=== PATIENT | female | born 1935 | race Caucasian/White ===

== ENCOUNTER 2022-03-25 09:18 | Emergency (ER) | payer MEDICARE, OTHER ==
[~2022-03-25] VITALS: Ht 157.5 cm; Wt 72.5 kg
[2022-03-25] MEDS ORDERED: ACETAMINOPHEN 325 MG TABLET PO STA (09:25)
[2022-03-25] MEDS ORDERED: cefTRIAXone 1 GM PRE-MIX 50 ML IV STA (09:28)
[2022-03-25] MEDS ORDERED: NS IV 1000 ML 1,000 ML IV STA ×2 (09:28→10:50)
[2022-03-25 09:32] LABS: BASOPHILS # (AUTO) 0.1 10^3/uL (0.0-0.1); BASOPHILS % (AUTO) 0 % (0-10); EOSINOPHILS % (AUTO) 0 % (0-10); HEMATOCRIT 37 % (35-52); LYMPHOCYTES # (AUTO) 0.6 10^3/uL (1.0-4.0); LYMPHOCYTES % (AUTO) 3 % (12-44); MEAN CORPUSCULAR HEMOGLOBIN 29 pg (25-34); MEAN CORPUSCULAR HGB CONC 32 g/dL (32-36); MEAN CORPUSCULAR VOLUME 91 fL (80-99); MEAN PLATELET VOLUME 9.5 fL (9.0-12.2); MONOCYTES # (AUTO) 0.7 10^3/uL (0.0-1.0); MONOCYTES % (AUTO) 3 % (0-12); NEUTROPHILS # (AUTO) 20.1 10^3/uL (1.8-7.8); NEUTROPHILS % (AUTO) 93 % (42-75); PLATELET COUNT 343 10^3/uL (130-400); WHITE BLOOD COUNT 21.6 10^3/uL (4.3-11.0)
--- NOTE | 2022-03-25 09:32 | ED General ---
General Chief Complaint: Skin/Wound Problems Stated Complaint: LWR EXT CELLULITIS Source of Information: Patient, EMS History of Present Illness Date Seen by Provider: Mar 25, 2022 Time Seen by Provider: 09:20 Initial Comments 86-year-old female presenting with complaints of pain, fever, swelling to her right lower extremity. She was concerned that she had cellulitis that she thought she may be caught from her having cellulitis of his hand. She also has yeast infection under her pannus and both breast. She states that this is happened before in terms of the yeast but she has medicine from Dr. Durham that she uses however she has not used any recently. She felt like the pain in her right leg was getting worse over the last 2 or 3 days and today had so much pain that she had rolled out of bed. She denies any headache, neck pain, injury from rolling out of bed but was complaining of constant pain in her right leg with the infection. She denies being diabetic and states that she just has high blood pressure and denies any history of MRSA. Timing/Duration: 2-3 Days Severity: Severe Modifying Factors: worse with Movement Associated Systoms: No Chest Pain; Cough (Mild dry cough); No Diaphoresis; Fever/Chills; No Headaches, No Nausea/Vomiting, No Seizure; Shortness of Air (Chronic and no worse than usual); No Syncope; Weakness (Generalized) Allergies and Home Medications Allergies Coded Allergies: No Known Drug Allergies (Unverified , 03/25/22) Patient Home Medication List Home Medication List Reviewed: Yes Review of Systems Review of Systems Constitutional: see HPI EENTM: No nose congestion Respiratory: see HPI Cardiovascular: No chest pain Gastrointestinal: No abdominal pain, No nausea, No vomiting Genitourinary: No dysuria Musculoskeletal: see HPI, other (Pain to the right leg from the knee down where she has cellulitis) Skin: see HPI, change in color (Erythema and swelling to the right leg from her knee down. There is increased warmth and tenderness to palpation. 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 oz. kg; BMI Method: General Appearance: Anxious, Chronically ill, Mild Distress, Obese HEENT: PERRL/EOMI, Pharynx Normal, Moist Mucous Membranes Neck: Full Range of Motion, Normal Inspection, Non Tender, Supple Respiratory: Chest Non Tender, Lungs Clear, No Accessory Muscle Use, No Respiratory Distress, Decreased Breath Sounds Cardiovascular: Normal Peripheral Pulses, Tachycardia Gastrointestinal: Normal Bowel Sounds, No Pulsatile Mass, Non Tender, Soft Rectal: Deferred Extremity: Normal Capillary Refill, Inflammation (erythema with increased warmth to RLE from knee down to foot. No fluctuance, induration or drainage. ), Swelling (RLE with erythema and tenderness to palpation) Neurologic/Psychiatric: Alert, Oriented x3, demi chef II-XII Norm as Tested Skin: Warm/Dry, Erythema (RLE from knee down to foot. erythematous excoriated areas with satellite lesions under her pannus and both breast consistent with tinea corporis), Other (stage 1 decub ulcer over coccyx) Focused Exam Sepsis Stage: Sepsis Possible Source: Skin/Soft Tissue Lactate Level 03/25/22 09:21: Lactic Acid Level 2.33*H 03/25/22 11:00: Lactic Acid Level 2.12*H Time of Focused Exam: 10:22 Respiratory: Chest Non Tender, Lungs Clear, No Accessory Muscle Use, No Respiratory Distress, Decreased Breath Sounds Cardiovascular: Normal Peripheral Pulses, Tachycardia Capillary Refill: Less Than 3 Seconds Peripheral Pulses: 2+ Carotid (R), 2+ Carotid (L), 2+ Radial Pulses (R), 2+ Radial Pulses (L) Skin: warm/dry, other (Redness with excoriation and satellite lesions under her pannus and bilateral breasts consistent with tenia corpora. Continued erythema to the right lower extremity consistent with cellulitis.) Lactic Acid Level Laboratory Tests Test 03/25/22 09:21 03/25/22 11:00 Lactic Acid Level 2.33 MMOL/L (0.50-2.00) *H 2.12 MMOL/L (0.50-2.00) *H Within 3hrs of presentation: Admin fluids, Admin ABX, Blood cultures prior to ABX's, Focus exam, Lactate level Progress/Results/Core Measures Suspected Sepsis SIRS Temperature: Pulse: Respiratory Rate: Laboratory Tests 03/25/22 09:21: White Blood Count 21.6H Blood Pressure / Mean: 03/25/22 09:21: Lactic Acid Level 2.33*H 03/25/22 11:00: Lactic Acid Level 2.12*H Laboratory Tests 03/25/22 09:21: Creatinine 0.69, Platelet Count 343, Total Bilirubin 0.5 Results/Orders Lab Results Laboratory Tests Test 03/25/22 09:21 03/25/22 09:40 03/25/22 09:50 03/25/22 11:00 Range/Units White Blood Count 21.6 H 4.3-11.0 10^3/uL Red Blood Count 4.08 3.80-5.11 10^6/uL Hemoglobin 12.0 11.5-16.0 g/dL Hematocrit 37 35-52 % Mean Corpuscular Volume 91 80-99 fL Mean Corpuscular Hemoglobin 29 25-34 pg Mean Corpuscular Hemoglobin Concent 32 32-36 g/dL Red Cell Distribution Width 13.7 10.0-14.5 % Platelet Count 343 130-400 10^3/uL Mean Platelet Volume 9.5 9.0-12.2 fL Immature Granulocyte % (Auto) 1 % Neutrophils (%) (Auto) 93 H 42-75 % Lymphocytes (%) (Auto) 3 L 12-44 % Monocytes (%) (Auto) 3 0-12 % Eosinophils (%) (Auto) 0 0-10 % Basophils (%) (Auto) 0 0-10 % Neutrophils # (Auto) 20.1 H 1.8-7.8 10^3/uL Lymphocytes # (Auto) 0.6 L 1.0-4.0 10^3/uL Monocytes # (Auto) 0.7 0.0-1.0 10^3/uL Eosinophils # (Auto) 0.0 0.0-0.3 10^3/uL Basophils # (Auto) 0.1 0.0-0.1 10^3/uL Immature Granulocyte # (Auto) 0.1 0.0-0.1 10^3/uL Neutrophils % (Manual) 92 % Lymphocytes % (Manual) 6 % Monocytes % (Manual) 2 % Sodium Level 140 135-145 MMOL/L Potassium Level 3.7 3.6-5.0 MMOL/L Chloride Level 103 98-107 MMOL/L Carbon Dioxide Level 26 21-32 MMOL/L Anion Gap 11 5-14 MMOL/L Blood Urea Nitrogen 26 H 7-18 MG/DL Creatinine 0.69 0.60-1.30 MG/DL Estimat Glomerular Filtration Rate 86 BUN/Creatinine Ratio 38 Glucose Level 166 H 70-105 MG/DL Lactic Acid Level 2.33 *H 2.12 *H 0.50-2.00 MMOL/L Calcium Level 10.3 H 8.5-10.1 MG/DL Corrected Calcium 10.8 H 8.5-10.1 MG/DL Total Bilirubin 0.5 0.1-1.0 MG/DL Aspartate Amino Transf (AST/SGOT) 15 5-34 U/L Alanine Aminotransferase (ALT/SGPT) 7 0-55 U/L Alkaline Phosphatase 35 L 40-136 U/L C-Reactive Protein 17.15 H <0.50 MG/DL Total Protein 6.9 6.4-8.2 GM/DL Albumin 3.4 3.2-4.5 GM/DL Influenza Type A (RT-PCR) Not Detected Not Detecte Influenza Type B (RT-PCR) Not Detected Not Detecte SARS-CoV-2 RNA (RT-PCR) Not Detected Not Detecte Urine Color ORANGE Urine Clarity CLEAR Urine pH 5.0 5-9 Urine Specific [place] >=1.030 1.016-1.022 Urine Protein NEGATIVE NEGATIVE Urine Glucose (UA) NEGATIVE NEGATIVE Urine Ketones NEGATIVE NEGATIVE Urine Nitrite NEGATIVE NEGATIVE Urine Bilirubin 1+ H NEGATIVE Urine Urobilinogen 0.2 < = 1.0 MG/DL Urine Leukocyte Esterase NEGATIVE NEGATIVE Urine RBC (Auto) NEGATIVE NEGATIVE Urine RBC 2-5 H /HPF Urine WBC 0-2 /HPF Urine Crystals NONE /LPF Urine Bacteria MODERATE H /HPF Urine Casts NONE /LPF Urine Mucus LARGE H /LPF Urine Culture Indicated YES My Orders Orders - TIFF FREREIRA MD Acetaminophen Tablet/Caplet (Tylenol T (03/25/22 09:25) Cbc With Automated Diff (03/25/22 09:25) Comprehensive Metabolic Panel (03/25/22 09:25) Blood Culture (03/25/22 09:25) Ua Culture If Indicated (03/25/22 09:25) Chest 1 View Ap/Pa Only (03/25/22 09:25) Ed Iv/Invasive Line Start (03/25/22 09:25) Crp Fs (03/25/22 09:25) Lactic Acid Analyzer (03/25/22 09:25) Covid 19 Inhouse Test (03/25/22 09:25) Influenza A And B By Pcr (03/25/22 09:25) Isolation Central Supply Req (03/25/22 09:25) Ns Iv 1000 Ml (Sodium Chloride 0.9%) (03/25/22 09:28) Ceftriaxone 1 Gm Pre-Mix (Rocephin 1 Gm (03/25/22 09:28) Ekg Tracing (03/25/22 09:29) Monitor-Rhythm Ecg Trace Only (03/25/22 09:29) O2 (03/25/22 09:29) Manual Differential (03/25/22 09:21) Urine Culture (03/25/22 09:50) Fentanyl Inj (Sublimaze Injection) (03/25/22 10:50) Ns Iv 1000 Ml (Sodium Chloride 0.9%) (03/25/22 10:50) Ketorolac Injection (Toradol Injection) (03/25/22 12:29) Vital Signs/I&O 03/25/22 03/25/22 03/25/22 09:18 10:32 13:55 Temp 36.9 36.9 Pulse 111 110 Resp 16 16 B/P (MAP) 107/78 (88) 123/73 Pulse Ox 94 94 93 O2 Delivery Nasal Cannula Nasal Cannula Nasal Cannula O2 Flow Rate 2.00 2.00 2.00 2.00 FiO2 94 Capillary Refill : Progress Note #1: Progress Note Obtain labs to look for signs of sepsis, evaluate her white blood cell count, check her electrolytes and kidney and liver function. Lactic acid to look for sepsis. Chest x-ray to look for any pneumonia with her chronic shortness of breath and requiring oxygen at home. Swab for COVID and influenza. Start on IV fluids for hydration and Rocephin 1 g IV after her cultures were obtained. Differential diagnosis includes cellulitis, sepsis, pneumonia, UTI Progress Note #2: Time: 09:36 Progress Note CBC showed elevated white blood cell count over 21,000 with a left shift. Her lactic acid was slightly elevated to 2.33. Her electrocardiogram shows sinus tachycardia without acute ST elevation. Her blood pressure and heart rate were improving as she was getting fluids and antibiotics. She did complain of pain to the right leg and was initially given Tylenol to help with that. However she was still complaining of pain when I rechecked her. At that point her blood pressure and heart rate were doing better so we will try a dose of fentanyl to see if it might help more. Progress Note #3: Time: 10:28 Progress Note Chemistry showed elevated CRP to 17.15. Her glucose was elevated to 166. She did have some elevation of her calcium to 10.8 as well which could be related back to her infection. Her BUN was elevated to 26 with a normal creatinine of 0.69. This might indicate some dehydration. Her urinalysis did show increased specific gravity greater than 1.030 which would again go along with dehydration. No acute infection seen on the urinalysis. Chest x-ray showed some atelectasis versus infiltrate in the apical region. As patient was not having severe cough and was negative for flu and COVID and felt like her shortness of breath was stable and chronic this could be just more atelectasis than true infiltrate. She is getting Rocephin for cellulitis RLE in the meantime which will help with respiratory infection if it is there. Patient was improving with medicine and treatment but with her sepsis I called and spoke with Dr. Colorado who is on-call for Dr. Durham and [facility]. When I reviewed the patient's physical exam and test results showing the elevated white blood cell count with left shift and lactic acid of 2.33 to go with sepsis from her right lower extremity cellulitis she was agreeable to admission of the patient. Patient had requested to try and go to [place] if possible and Dr. Colorado is also covering there so she was agreeable to having the patient be admitted to [place]. We will continue with fluids and antibiotics. Progress Note #4: Progress Note Patient felt the Fentanyl did not do anything to help with her pain so she wanted something more. Will try Toradol 15 mg IV to try and help with pain and inflammation since the Fentanyl 50 mcg IV dose did not help her. Patient waiting on EMS to transport her to [facility] for IV antibiotics and continued medical therapy. Repeat Lactic acid improved to 2.12 ECG Initial ECG Impression Date: Mar 25, 2022 Initial ECG Impression Time: 10:12 Initial ECG Rate: 108 Initial ECG Rhythm: S.Tach Initial ECG Comparisson: No Previous ECG Available Comment Based on my personal interpretation and review of her electrocardiogram she has sinus tachycardia with frequent supraventricular complexes. Her heart rate is 108 bpm. MD interval 170 ms. She has Q waves in the inferior leads. There is no acute ST elevation. QT interval 314 ms with a QTc interval 378 ms. There is no prior tracing available for comparison. Diagnostic Imaging Diagonstic Imaging: Xray Plain Films/CT/US/NM/MRI: chest Comments [facility] [place], [place] NAME: LUDA BECKETT [facility] REC#: [id number] PT STATUS: REG ER : 1935 PHYSICIAN: TIFF FERREIRA MD ADMIT DATE: 03/25/22/ER FS Signed Date of Exam:03/25/22 CHEST 1 VIEW AP/PA ONLY EXAMINATION: Chest 1 view HISTORY: Short of breath COMPARISON: None available. FINDINGS: Lung volumes are small. There is a right apical opacity. There may be a tiny right effusion. Heart size is normal for technique. No pneumothorax. IMPRESSION: 1. Small lung volumes with right apical opacity. Differential includes pneumonia and atelectasis. Dictated by: Dictated on workstation # [id number] Dict: 03/25/22 1001 Trans: 03/25/22 1145 [facility] [id number] Interpreted by: SARAH IBRAHIM MD Electronically signed by: SARAH IBRAHIM MD 03/25/22 1145 Reviewed: Reviewed by Me Departure Impression Primary Impression: Cellulitis of right lower extremity Additional Impressions: Tinea corporis Sepsis Qualified Codes: A41.9 - Sepsis, unspecified organism Cystitis without hematuria Decubitus ulcer of coccygeal region, stage 1 Disposition: XFER SHT-TRM HOSP Condition: Stable Transfer Transfer Reason: Patient preference (Patient requests [facility]) Time Spoke to Accepting Phy: 10:28 Transfer Progress Notes Discussed with Dr. Colorado and reviewed her physical exam and test results showing cellulitis of the right lower extremity and tinea under her pannus and both breast. She had an elevated white blood cell count over 21,000 and a lactic acid of 2.3. She was started on Rocephin as an antibiotic and given IV fluids for hydration and resuscitation. Transfer Facility: [facility] Method of Transfer: EMS TIFF FERREIRA MD Mar 25, 2022 09:32
[2022-03-25 09:48] LABS: BILIRUBIN,TOTAL 0.5 MG/DL (0.1-1.0); CALCIUM 10.3 MG/DL (8.5-10.1); CREATININE SERUM 0.69 MG/DL (0.60-1.30); POTASSIUM 3.7 MMOL/L (3.6-5.0); TOTAL PROTEIN 6.9 GM/DL (6.4-8.2)
[2022-03-25 09:49] LABS: ALBUMIN 3.4 GM/DL (3.2-4.5)
[2022-03-25 09:57] LABS: CLARITY,URINE CLEAR; GLUCOSE, URINE (UA) NEGATIVE (NEGATIVE); KETONES,URINE NEGATIVE (NEGATIVE); LEUKOCYTE ESTERASE ,URINE NEGATIVE (NEGATIVE); NITRITE,URINE NEGATIVE (NEGATIVE); PROTEIN,URINE NEGATIVE (NEGATIVE)
--- NOTE | 2022-03-25 10:04 | Diagnostic Imaging Report ---
EXAMINATION: Chest 1 view HISTORY: Short of breath COMPARISON: None available. FINDINGS: Lung volumes are small. There is a right apical opacity. There may be a tiny right effusion. Heart size is normal for technique. No pneumothorax. IMPRESSION: 1. Small lung volumes with right apical opacity. Differential includes pneumonia and atelectasis. Dictated by: Dictated on workstation # [id number]
[2022-03-25 10:49] LABS: BACTERIA,URINE MODERATE /HPF; BILIRUBIN,URINE 1+ (NEGATIVE); COLOR,URINE ORANGE; WBC,URINE 0-2 /HPF
[2022-03-25] MEDS ORDERED: fentaNYL INJ 100 MCG/2 ML AMP IVP STA (10:50)
[2022-03-25 11:45] LABS: LYMPHOCYTES % (MANUAL) 6 %; MONOCYTES % (MANUAL) 2 %; NEUTROPHILS % (MANUAL) 92 %
[2022-03-25] MEDS ORDERED: KETOROLAC 15 MG/ML VIAL IVP STA (12:29)
[2022-03-25 13:55] VITALS: BP 123/73
== END 2022-03-25 13:55 | disposition short-term general hospital (02) ==
LOC: ER FS 09:20
DX: L03.115 Cellulitis of right lower limb (principal); B35.4 Tinea corporis; A41.9 Sepsis, unspecified organism; N30.90 Cystitis, unspecified without hematuria; L89.151 Pressure ulcer of sacral region, stage 1; Z20.822 Contact with and (suspected) exposure to COVID-19
CPT/HCPCS: 36415; 51702; 71045; 80053; 81000; 83605; 85007; 85027; 86141; 87040; 87077; 87088; 87184; 87636; 93005; 93041